=== PATIENT | female | born 1995 | race African-American/Black ===

== ENCOUNTER 2018-01-26 04:24 | Emergency (ER) | payer BC ==
[2018-01-26 04:31] VITALS: BP 135/69; PULSE 95; TEMP 98.3; BMI 30.1
--- NOTE | 2018-01-26 04:45 | PDOC ---
History of Present Illness - General Chief Complaint: Laceration Stated Complaint: LH 4TH FINGER LAC Time Seen by Provider: 01/26/18 04:45 History Source: Patient Exam Limitations: No Limitations - History of Present Illness Initial Comments: 01/26/18 04:52 This is a 22-year-old female who comes in complaining of a laceration to her left middle finger. Patient was chopping salad when she accidentally chopped a piece out of the end of her finger. Patient states that she can't get the bleeding to stop so came in for evaluation. Patient otherwise is healthy and her tetanus is up-to-date. PAST MEDICAL HISTORY: no significant history PAST SURGICAL HISTORY: no significant history FAMILY HISTORY: no pertinant history SOCIAL HISTORY: Pt lives with family and is employed. MEDICATIONS: reviewed ALLERGIES: As per nursing notes ROS General: No fevers or chills, no weakness, no weight loss HEENT: No change in vision. No sore throat,. No ear pain CardioVascular: No chest pain or shortness of breath Respiratory:No cough, or wheezing. Gastrointestinal: no nausea, vomiting, diarrhea or constipation, No rectal bleeding Genitourinary: No dysuria, hematuria, or frequency Musculoskeletal: . No joint pain or swelling Neurologic: No headache, vertigo, dizziness or loss of consciousness Psychiatric: nor depression Skin: No rashes or easy bruising Endocrine: no increased thirst or abnormal weight change Allergic: no skin or latex allergy All other systems reviewed and normal GENERAL: The patient is awake, alert, and fully oriented, in no acute distress. HEAD: Normal with no signs of trauma. EARS: Bilateral ears are normal with normal external canal. and tympanic membranes. EYES: Pupils equal, round and reactive to light, extraocular movements intact, sclera anicteric, conjunctiva clear. EXTREMITIES: Normal range of motion, no edema. There is a small avulsion to the tip of the third finger of the left hand. NEUROLOGICAL: Normal speech, normal gait. grossly intact PSYCH: Normal mood, normal affect. SKIN: Warm, Dry, normal turgor, no rashes or lesions noted. Scissors avulsion was nothing to suture or blue so Surgicel was placed on the wound and a gauze over that period Past History - Past Medical History Allergies/Adverse Reactions: Allergies Allergy/AdvReac Type Severity Reaction Status Date / Time No Known Allergies Allergy Unverified 01/26/18 04:25 Home Medications: Ambulatory Orders Fexofenadine HCl [[facility]iana Allergy] 60 mg PO PRN PRN 01/26/18 Asthma: (SEASONAL ALLERGIES) COPD: No - Immunization History Immunization Up to Date: Yes - Suicide/Smoking/Psychosocial Hx Smoking History: Never smoked *Physical Exam - Vital Signs Last Vital Signs Temp Pulse Resp BP Pulse Ox 98.3 F 95 H 16 135/69 98 01/26/18 04:27 01/26/18 04:01/26/18 04:01/26/18 04:01/26/18 04:27 *DC/Admit/Observation/Transfer Diagnosis at time of Disposition: Avulsion of fingertip Qualifiers: Encounter type: initial encounter Qualified Code(s): S61.209A - Unspecified open wound of unspecified finger without damage to nail, initial encounter - Discharge Dispostion Disposition: HOME Condition at time of disposition: Stable Decision to Admit order: No - Referrals - Patient Instructions Additional Instructions: leave the dressing in place for 3 or 4 hours. when you take the dressing off you will notice that e a piece of the underlying gauze will stick to the wound. Carefully trim the edges of the rest of the gauze away from the piece that is stuck to the wound. Leave the stuck piece in place until it comes off on its own. You may need to put a Band-Aid with a little bacitracin ointment over the to keep it clean and allow it to heal. Return to the emergency department immediately with ANY new, persistent or worsening symptoms. Continue any medications as previously prescribed by your physician. You should follow up with your primary doctor as soon as possible regarding today's emergency department visit. . Please make sure your doctor reviews the results of your emergency evaluation. Thank you for coming to the Emergency Department today for your care. It was a pleasure to see you today. Please note that your evaluation is INCOMPLETE until you follow-up with your doctor. - Post Discharge Activity
== END 2018-01-26 05:00 | disposition home or self-care (01) ==
LOC: FER 04:24
DX: S61.213A Laceration without foreign body of left middle finger without damage to nail, initial encounter (principal); W26.0XXA Contact with knife, initial encounter; Y93.G1 Activity, food preparation and clean up; Y92.89 Other specified places as the place of occurrence of the external cause; J30.2 Other seasonal allergic rhinitis
CPT/HCPCS: 99281-25